=== PATIENT | female | born 1930 | race Caucasian/White ===

== ENCOUNTER 2018-10-21 10:50 | Inpatient (IN) | payer OTHER ==
[2018-10-21] VITALS (38 sets, daily range): BP systolic 91–145; BP diastolic 32–105
[~2018-10-21] VITALS: Ht 165.1 cm; Wt 53.6 kg
--- NOTE | ~2018-10-21 | HC ---
[facility] [place] [address] CONSULTATION Name: SHERMAN TREJO Room #: 216-P ADM IN M.R.#: [id number] Admission: 10/21/18 ������������������ Attend Phys: Lorraine Bolton MD Discharge: ������������������ Date of : 31 Report #: [id number] THIS REPORT FOR: //name// CC: Oscar Bolton REQUESTING PHYSICIAN: Jasson Mann MD CHIEF COMPLAINT: Pneumonia. HISTORY OF PRESENT ILLNESS: The patient is an 88-year-old female who presented to [facility] on 10/19/2018. She had been discovered to have pneumonia. She has a history of COPD, unfortunately also dementia, which has been increasing in severity over the last 2 years. The patient had a thoracentesis for pleural effusion and has had recurrent atrial fibrillation with rapid ventricular response, unfortunately has been refusing medications at times and there is concern that she may not accept Cardizem continuing on forward. The patient has had anorexia and decreased both p.o. fluid and food intake and this is overall concerning for her long-term protein calorie malnutrition. The patient is currently underweight and there is a concern that she may be able to maintain weight in the future. I did discuss this with the patient's niece who appears to be her primary caregiver or at least the primary contact for her family. Her niece, Brigitte, had stated she has had worsening overall ability to care for herself and then in July had a urinary tract infection followed by admission and then unfortunately had been moved to a memory care unit due to inability to self-care. There are other family members that have been intermittently involved. It appears that her son has intermittently been involved, but there is a state division investigation with regards to him possibly due to diversion of monetary funds. The patient at this current point in time appears to be comfortable. She denies any pain, denies any air hunger, denies nausea. She does admit to thirst and was able to drink some thickened fluids for me today. PAST MEDICAL HISTORY: Significant for COPD, chronic anemia, dementia, gastroesophageal reflux disease, hyperlipidemia. SOCIAL HISTORY: Again, she is living in a memory care unit at [facility]. Additionally, she has a niece who is making medical decisions at this time. She is not a current smoker. Does not have significant alcohol use. Again, son is involved, but he is under state investigation. She does not have a formal durable power of attorney at law, currently listed as full code. ALLERGIES: VALIUM AND AMIDE. MEDICATIONS: Currently, potassium chloride, MiraLax, torsemide 10 mg daily, Augmentin, lactulose, Colace, Cardizem, metoprolol, Protonix, DuoNeb, folic acid, Lipitor, aspirin. [address] [address] CONSULTATION Name: SHERMAN TREJO Room #: 216-P [facility] IN M.R.#: [id number] Admission: 10/21/18 ������������������ Attend Phys: Lorraine Bolton MD Discharge: ������������������ Date of : 31 Report #: [id number] FAMILY HISTORY: Noncontributory. PAST SURGICAL HISTORY: I am unable to obtain at this time. She has had a thoracentesis during this admission. REVIEW OF SYSTEMS: Again stated as per HPI. She is not responding significantly to my questions at this time, yes or no answers mostly, although again she denies pain, denies air hunger, denies significant nausea. Does report some thirst. Denies any other significant concerns. PHYSICAL EXAMINATION: VITAL SIGNS: Temperature 36.7, pulse 92, respirations 16, blood pressure is 112/45, 95% on room air. GENERAL: The patient is alert. She is actually oriented x 1 only. She is in no acute distress. HEENT: No scleral icterus, no conjunctival injection. Extraocular muscles appear to be intact. CARDIOVASCULAR: She has an irregularly irregular rate and rhythm; however, she is not tachycardic or bradycardic at this time. RESPIRATORY: She appears to have clear respiratory sounds in upper lungs bilaterally. ABDOMEN: Soft, although she would not allow me to palpate significantly and would not allow me to listen to her bowel sounds. LABORATORY DATA: These included white blood cells 23.6, hemoglobin 7.9. Potassium 3.4, creatinine 0.9. ASSESSMENT AND PLAN: 1. Pneumonia. Unfortunately, at this time, the patient has had continued overall significant pneumonia condition. She has had some stabilization in her condition, but her white blood cells have not returned to normal. Certainly, she is at risk for recurrent pneumonia, especially of aspiration type. Significant dysphagia known and significant dementia and we are concerned overall for her anorexia level. Did discuss this all with Brigitte today. She is understanding of this and is desiring to have hospice evaluate likely for transition to her previous residence and/or another facility long-term care in which she can have hospice in addition. I spent approximately 35 minutes in discussion of advanced directives with regards to this and advanced care planning. Again, Brigitte was amenable to this also, did a verbal authorization for changed to DNR status as well as outside the hospital DNR, which was confirmed with a porter sample case at this time. I did discuss this with porter sample case and primary team. 2. Dementia, appears to be severe. Again, the patient is likely to have recurrent pneumonia and/or aspiration in the future considering her dysphagia now. Their overall concern is her level of anorexia. Certainly, this would [facility] [address] [place] [address] CONSULTATION Name: SHERMAN TREJO Room #: 216-P ADM IN M.R.#: [id number] Admission: 10/21/18 ������������������ Attend Phys: Lorraine Bolton MD Discharge: ������������������ Date of : 31 Report #: [id number] contribute to a further decline and I believe she would likely qualify for hospice based on this criteria. 3. Dysphagia. Again, as previously stated, 4. Protein calorie malnutrition. Again, as previously stated, 5. Anemia. This could significantly contribute to her case in the future. 6. Fkuwv-fv-nmvkdmj combined respiratory failure. Again, this contributes as well. 7. Atrial fibrillation. I appreciate Cardiology's management. Again, this would be another concern with regards to her care whether or not she would continue Cardizem in the future. Again, this was all discussed with family today. Thank you very much for this consultation. Please contact me if you have any further questions with regards to the case, but I do feel like we can proceed forward with hospice in the future here. ��������������������������������������������� ���������������������������������������� By: ��������������������������������������������� 1925 1523 Matthew Angel DO /nt
--- NOTE | 2018-10-21 11:07 | EKG ---
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 : 1930 Requested By: Sania Boo Order Number: [id number] MD: Kameron Armendariz Measurements Intervals [place] Rate: 159 P: KS: QRS: 90 QRSD: 84 T: -87 QT: 303 QTc: 493 Interpretive Statements Atrial fibrillation with rapid V-rate Nonspecific ST and T wave abnormality No previous ECG available for comparison Electronically Signed On 10-21-2018 11:06:55 COMPATIBILITY TEST ENGINEER by Kameron Armendariz [email or web address] ��������������������������������������������� <ELECTRONICALLY SIGNED> ���������������������������������������� By: Kameron Armendariz MD, [facility] ��������������������������������������������� 10/21/18 1106 1053 1053 Kameron Armendariz MD, FACC /EPI
[2018-10-21] MEDS ORDERED: IRON325 PO (11:08)
[2018-10-21] MEDS ORDERED: ADVAIR 250-501 EACH INH (11:08)
[2018-10-21] MEDS ORDERED: PRAVACHOL20 MG PO (11:09)
[2018-10-21] MEDS ORDERED: ROBITUSSIN100 MG/53 PO (11:09)
[2018-10-21] MEDS ORDERED: PRILOSEC 20 MG20 MG PO (11:09)
[2018-10-21 11:43] LABS: ABSOLUTE NEUTROPHILS 16.9 thou/uL (1.4-8.2); BASOPHILS 0.1 % (0.0-2.0); HEMATOCRIT 29.6 % (37.0-47.0); HEMOGLOBIN 9.4 gm/dL (12.0-15.0); LYMPHOCYTES 4.6 % (24.0-44.0); MCH 24.9 pg (26.0-34.0); MCHC 31.7 g/dL (28.0-37.0); MCV 78.4 fL (80.0-100.0); MONOCYTES 5.7 % (1.0-8.0); PLATELET COUNT 504 thou/uL (150-400); POLYS 89.6 % (36.0-66.0); RBC 3.78 mil/uL (4.20-5.00); RDW 24.6 % (10.5-14.5); WBC 18.9 thou/uL (4.0-11.0)
[2018-10-21 12:12] LABS: CALCIUM 9.3 mg/dL (8.5-10.1); CREATININE 1.4 mg/dL (0.6-1.0); POTASSIUM 4.2 mmol/L (3.5-5.1)
[2018-10-21 12:16] LABS: ALBUMIN 2.4 g/dL (3.4-5.0); TOTAL BILIRUBIN 0.3 mg/dL (<0.1-1.0); TOTAL PROTEIN 6.7 g/dL (6.4-8.2)
[2018-10-21 12:18] LABS: TROPONIN-I 2.49 ng/mL (<0.06)
[2018-10-21 12:39] LABS: ANISOCYTOSIS 3+; MACROCYTES 2+; POLYCHROMASIA 1+; TARGET CELLS FEW
--- NOTE | 2018-10-21 14:44 | NUR ---
VASCULAR ACCESS CONSULTED FOR PICC LINE, PT'S LABS,MEDS,HISTORY, ORDER AND CONSENT VERIFIED. PT WAS PREPPED AND DRAPED FOR MAX BARRIER PRECAUTIONS. L[place]ON BASILIC WAS WIDELY PATENT WITH USG, 1% LIDOCAINE GIVEN SQ. 5FR TL POWER PICC TRIMMED TO 38CM INSERTED TO 1CM EXTERNAL. PICC SECUREED STAT CXR OBTAINED.
--- NOTE | 2018-10-21 15:00 | NUR ---
CXR confirmed placement, released for immediate use per protocol to Cynthia FELTON
--- NOTE | 2018-10-21 19:20 | NUR ---
SHIFT SUMMARY: REPORT RECEIVED FROM ROBERT RODRIGUEZ RN IN ER. PT RECEIVED PER CART TO ICU #242 WITH DIAGNOSIS: RIGHT LOWER LOBE PNEUMONIA, ELEVATED TROPONIN. PT ALSO HAS NEW ONSET AFIB WITH RVR, CURRENTLY CARDIZEM GTT INFUSING AT 10MG/HR WITH HR 120-130'S. ALERT TO PERSON AND THAT SHE IS IN [place]. CALM, THEN WHEN PROVIDING ANY CARE PT BECOMES IRRITABLE, CUSSING AT NURSES AND TRYING TO HINDER NECESSARY CARE. DIGOXIN ADMINISTERED FOR AFIB WITH RVR, THEN HR DOWN TO 80-100. ANTIBIOTICS INFUSING, 5L/NC, NONPRODUCTIVE DRY MODERATE COUGH, RESP RATE INTERMITTENTLY IN UPPER 20'S & RARELY TO VERY LOW 30'S. PT WOULD BE TOO SHORT OF AIR TO USE THE BEDPAN, SO PEREZ 16FR PLACED WITH STERILE TECHNIQUE, 10CC STERILE WATER PLACED IN BALLOON. EMERGENCY CONTACT #1, ESTRELLA BALDWIN STATED SHE RECEIVED CALL FROM CUSTODIAL AND WAS GIVEN THE HOSPITAL NUMBER. ESTRELLA STATED THAT THE PT HAS A BROTHER (OR SON) BUT HE IS NOT INVOLVED IN HER CARE AND HE DOESN'T HAVE A TELEPHONE. SHE RESIDES IN [place] AND IS UNABLE TO CONTACT HIM. REPORT TO MONALISA CURTIS RN.
[2018-10-21 21:40] LABS: URINE BILIRUBIN NEGATIVE (Negative); URINE BLOOD NEGATIVE (Negative); URINE CLARITY CLOUDY; URINE COLOR YELLOW; URINE GLUCOSE-RANDOM* NEGATIVE (Negative); URINE KETONES NEGATIVE (Negative); URINE LEUKOCYTES-REFLEX NEGATIVE (Negative); URINE NITRITE-REFLEX NEGATIVE (Negative); URINE PROTEIN (DIPSTICK) NEGATIVE (Negative); URINE SPECIFIC GRAVITY 1.025 (1.005-1.035); URINE UROBILINOGEN 0.2 E.U./dl (0.2-1.0)
[2018-10-22] VITALS (30 sets, daily range): BP systolic 90–140; BP diastolic 38–76
[2018-10-22 00:47] LABS: CHOLESTEROL 138 mg/dL (<200); HDL CHOLESTEROL 42 mg/dL (>40); LDL CHOLESTEROL 69 mg/dL (<100); SERUM ASSESSMENT Clear; TC:HDL 3.3 Ratio (Not establshd); TRIGLYCERIDE 135 mg/dL (<150); VLDL 27 mg/dL (<40)
[2018-10-22 05:23] LABS: HEMATOCRIT 27.6 % (37.0-47.0); HEMOGLOBIN 8.4 gm/dL (12.0-15.0); MCHC 30.4 g/dL (28.0-37.0); MCV 79.1 fL (80.0-100.0); RBC 3.49 mil/uL (4.20-5.00); RDW 24.2 % (10.5-14.5); WBC 18.2 thou/uL (4.0-11.0)
[2018-10-22 05:37] LABS: CALCIUM 8.1 mg/dL (8.5-10.1); CREATININE 1.2 mg/dL (0.6-1.0); POTASSIUM 4.2 mmol/L (3.5-5.1)
--- NOTE | 2018-10-22 06:00 | NUR ---
PT RESTING QUIETLY AT PRESENT. HAS HAD PERIODS OF RESTLESSNESS. PT STATES SHE SMOKES 6 CIG/DAY GIVEN A NICOTINE PATCH. O2 SAT 95 % ON 5 L NC NON PRODUCTIVE DRY COUGH. REMAINS IN A FIB RATE 75 BATHED. WILL CONT TO MONITOR.
--- NOTE | 2018-10-22 07:52 | HC ---
[facility] [place] [address] CONSULTATION Name: SHERMAN TREJO Room #: 242- ADM IN M.R.#: [id number] Admission: 10/21/18 ������������������ Attend Phys: Lorraine Bolton MD Discharge: ������������������ Date of : 31 Report #: [id number] THIS REPORT FOR: //name// CC: Oscar Bolton DATE OF SERVICE: 10/21/2018 INFECTIOUS DISEASE CONSULTATION ATTENDING PHYSICIAN: Dr. Bolton. REASON FOR EVALUATION: Sepsis, right-sided pneumonitis. HISTORY OF PRESENT ILLNESS: Chart reviewed, the patient examined. This is an 87-year-old woman with a known history of COPD, who is a resident of a facility. Staff apparently observed what appeared to be progressive dyspnea, productive cough of brownish sputum. The chest x-ray raised question of a pneumonitis. Due to feeling that she was hypoxemic, she was transferred to the Emergency Room, where she was found to be in uncontrolled atrial fibrillation. She was also hypotensive with systolic blood pressures in the 90s. As a result, she was transferred to Intensive Care Unit. It is difficult to ascertain her degree of understanding and I suspect may have a degree of dementia, perhaps with some fairly marked encephalopathy. She does respond to questions, although it is not clear that they reflect situation. Any question that raises a question of some complaints, she says no. She states she is eating well. Her weight is stable. She was found to have lactic acid elevated at 2.9 initially and troponin elevated at 2.29. White count elevated at 18.9. Chest x-ray did confirm right lower lobe opacities. She was started empirically on combination therapy with vancomycin, piperacillin, tazobactam and azithromycin. ALLERGIES: DIAZEPAM. CURRENT MEDICATIONS: Include p.r.n. analgesics, antiemetics, zolpidem, guaifenesin, Zosyn, vancomycin, diltiazem CD, aspirin and atorvastatin. PAST MEDICAL HISTORY: Includes likely COPD, anemia, reflux and hyperlipidemia. SOCIAL HISTORY: Reportedly, no smoker. No ethanol. FAMILY HISTORY: Noncontributory. REVIEW OF SYSTEMS: Not reliably obtained. PHYSICAL EXAMINATION: GENERAL: She appears chronically ill, undernourished, in [id number]-giohwyub [facility] [address] [place] [address] CONSULTATION Name: SHERMAN TREJO Room #: 242-P [facility] IN [facility]#: [id number] Admission: 10/21/18 ������������������ Attend Phys: Lorraine Bolton MD Discharge: ������������������ Date of : 31 Report #: [id number] distress. VITAL SIGNS: Temperature 97.1. Pulse had been in the 170s; now more recently, in the 104s. Respirations 24; that is down from 35. Blood pressure is 105/56. Saturation is 94% and she is on 5 liters nasal cannula oxygen supplementation. HEENT: Extraocular muscles intact. She is normocephalic. NECK: Supple. LUNGS: Scattered coarse breath sounds. HEART: Tachycardic, irregular. I do not appreciate a murmur. ABDOMEN: Soft. There is no apparent tenderness. GENITOURINARY: Deferred. RECTAL: Deferred. LABORATORY DATA: Chest x-ray as described above. Electrolytes: Sodium 138, potassium 4.2, chloride 103, bicarbonate is 23, anion gap of 12, BUN and creatinine 54 and 1.4 and glucose of 157. Albumin of 2.4. Total protein of 6.7. Estimated GFR of 36. Lactic acid serially were 2.9 and 1.3. Troponin elevated at 2.29. CBC: White count of 18.9, H and H 9.4 and 29.6 and platelets of 504,000. ASSESSMENT AND PLAN: Pneumonitis with early sepsis. We will continue empiric antimicrobial therapy. I am not hopeful to obtain any sputum at this point. There are blood cultures in progress. We will obtain a urinalysis as well and send off Pneumococcal and Legionella antigen and MRSA PCR. She appears quite tenuous at this point. ��������������������������������������������� <ELECTRONICALLY SIGNED> ���������������������������������������� By: Ras Lerner MD ��������������������������������������������� 10/22/18 0752 1742 0012 Ras Lerner MD /nt
--- NOTE | 2018-10-22 09:26 | EKG ---
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 : 1930 Requested By: Kameron Armendariz Order Number: [id number] MD: Kameron Armendariz Measurements Intervals [place] Rate: 101 P: DC: QRS: 89 QRSD: 83 T: 256 QT: 380 QTc: 493 Interpretive Statements Atrial fibrillation Borderline right axis deviation Nonspecific ST and T wave abnormality Compared to ECG 10/21/2018 10:53:17 Heart rate has slowed Electronically Signed On 10-22-2018 9:25:43 COLOR MAKER DYER by Kameron Armendariz [email or web address] ��������������������������������������������� <ELECTRONICALLY SIGNED> ���������������������������������������� By: Kameron Armendariz MD, [facility] ��������������������������������������������� 10/22/1825 D: [id number] 9 Kameron Armendariz MD, FACC /EPI
--- NOTE | 2018-10-22 10:35 | 2DMMODE ---
[facility] [address] [place] [address] 2 D/M-MODE ECHOCARDIOGRAM Name: SHERMAN TREJO Room #: 242-P ADM IN M.R.#: [id number] ������������� Admission: 10/21/18 ������������� Attend Phys: Lorraine Bolton MD Discharge: ��� ������������� ��� Date of : 32 Date of Service: 10/22/18 1035 �� Report #: [id number] �������� ��������������������������������������������[id number] THIS REPORT FOR: //name// APPROVED REPORT Study performed: 10/22/2018 09:14:57 EXAM: Comprehensive 2D, Doppler, and color-flow Echocardiogram Patient Location: ICU Room #: 242 Status: routine BSA: 1.59 HR: 85 bpm BP: 140/69 mmHg Rhythm: Atrial Fibrillation Other Information Study Quality: Good Indications Atrial Fibrillation Elevated Troponin 2D Dimensions RVDd: 28.69 mm IVSd: 9.08 (7-11mm) LVOT Diam: 17.92 (18-24mm) LVDd: 48.30 mm PWd: 9.92 (7-11mm) Ascending Ao: 24.54 (22-36mm) LVDs: 34.86 (25-40mm) Aortic Root: 28.43 mm IVC: 24.00 mm Volumes Left Atrial Volume (Systole) Single Plane 4CH: 51.37 mL Single Plane 2CH: 64.42 mL LA ESV Index: 42.00 mL/m2 Aortic Valve AoV Peak Colin.: 1.39 m/s AO Peak Gr.: 7.80 mmHg LVOT Max P.77 mmHg LVOT Max V: 1.09 m/s JYOTSNA Vmax: 1.98 cm2 Pulmonary Valve PV Peak Colin.: 0.88 m/s PV Peak Gr.: 3.09 mmHg [facility] [address] [place] [address] 2 D/M-MODE ECHOCARDIOGRAM Name: SHERMAN TREJO Room #: 242-[facility] IN [facility].#: [id number] ������������� Admission: 10/21/18 ������������� Attend Phys: Lorraine Bolton MD Discharge: ��� ������������� ��� Date of : 32 Date of Service: 10/22/18 1035 �� Report #: [id number] �������� ��������������������������������������������[id number] Tricuspid Valve TR Peak Colin.: 2.79 m/s TR Peak Gr.: 31.26 mmHg PA Pressure: 41.00 mmHg Left Ventricle The left ventricle is normal size. There is normal left ventricular wall thickness. Left ventricular systolic function is moderately decreased. LVEF is 40%. Hypokinesis of mid to distal septum and anterior fuentes This study is not technically sufficient to allow evaluation of the LV diastolic function due to atrial fibrillation. Right Ventricle The right ventricle is normal size. The right ventricular systolic function is normal. Atria Left atrium is dilated. The right atrium size is normal. Aortic Valve Aortic valve is mildly calcified. No aortic regurgitation. There is no aortic valvular stenosis. Mitral Valve The mitral valve is normal in structure. Mild mitral regurgitation. No evidence of mitral valve stenosis. Tricuspid Valve The tricuspid valve is normal in structure. There is mild tricuspid regurgitation. Estimated PAP 40 mmHg. There is moderate pulmonary hypertension. Pulmonic Valve The pulmonary valve is normal in structure. Trace pulmonic regurgitation. Great Vessels The aortic root is normal in size. IVC is dilated and collapses <50% with inspiration. Pericardium Small pericardial effusion. <Conclusion> Left ventricular systolic function is moderately decreased. [facility] [place] [address] [place] [address] 2 D/M-MODE ECHOCARDIOGRAM Name: SHERMAN TREJO Room #: 242-[facility] IN M.R.#: [id number] ������������� Admission: 10/21/18 ������������� Attend Phys: Lorraine Bolton MD Discharge: ��� ������������� ��� Date of : 32 Date of Service: 10/22/18 1035 �� Report #: [id number] �������� ��������������������������������������������[id number] LVEF is 40%. Hypokinesis of mid to distal septum and anterior fuentes Aortic valve is mildly calcified. No regurgitation or stenosis. The mitral valve is normal in structure. Mild mitral regurgitation. There is mild tricuspid regurgitation. Estimated pulmonary artery pressure of 40 mmHg. Small pericardial effusion. ��������������������������������������������� <ELECTRONICALLY SIGNED> ���������������������������������������� By: Kameron Armendariz MD, [facility] ��������������������������������������������� 10/22/18 1035 103 1035 Kameron Armendariz MD, FACC /INF
--- NOTE | 2018-10-22 13:45 | NUR ---
CM ASSESSMENT: CASE OPENED FOR DC PLANNING. CLINICAL INFO REVIEWED. PT ADMITTED FROM [facility] R/T SOA. TROPONIN ELEVATED AND IN RAPID AFIB. PT WITH HX DEMENTIA AND POOR HISTORIAN. SPOKE GABRIEL WEEMS AT [facility], TREVER WHO CONFIRMS PT IS LTC ON LOCKED MEMORY CARE UNIT. PREVIOUSLY LIVED IN [facility], THEN HOSPITALIZED AT [facility] AND PLACED AT [facility] 08/20/18. PT USES WALKER AND W/C AND NEEDS ASSIST WITH ADLS. CALLED LISTED CONTACT ESTRELLA BALDWIN [phone]. ESTRELLA IS PT'S NIECE AND LIVES IN [place]. ESTRELLA CONFIRMS PLAN TO RETURN TO [facility] WHEN MEDICALLY STABLE. ASKED DC TITLE 1 TUTOR TO FAX CLINICAL TO MARLENA AT [facility] ADMISSIONS. THERAPY EVALS ORDERED.
--- NOTE | 2018-10-22 13:49 | NUR ---
FAXED CLINICAL UPDATE TO [facility] LEFT MSG WITH [facility] IN ADM. THAT UPDATE FAXED. DCP TO FOLLOW.
--- NOTE | 2018-10-22 14:18 | NUR ---
ALERT TO PERSON, THIS AFTERNOON PT IS ALERT TO PERSON, PLACE- [facility], DENIES PAIN, AFIB-70'S, 02 4L/NC, ENCOURAGED TO TAKE DEEP BREATHS THEN COUGH. PASSED SWALLOW EVAL WITH LIMITATIONS. PT TOLERATED MEAL WHEN SITTING UPRIGHT. LATER PT HAS A MOIST NONPRODUCTIVE COUGH. PEREZ WITH ADEQUATE URINE OUTPUT. SLOWLY PROGRESSING.
[2018-10-23] VITALS (16 sets, daily range): BP systolic 101–139; BP diastolic 36–87
[2018-10-23 05:54] LABS: HEMATOCRIT 26.2 % (37.0-47.0); HEMOGLOBIN 8.3 gm/dL (12.0-15.0); MCH 25.1 pg (26.0-34.0); MCHC 31.6 g/dL (28.0-37.0); MCV 79.4 fL (80.0-100.0); RBC 3.3 mil/uL (4.20-5.00); WBC 10.6 thou/uL (4.0-11.0)
[2018-10-23 06:00] LABS: CALCIUM 8.1 mg/dL (8.5-10.1); CREATININE 1.3 mg/dL (0.6-1.0); POTASSIUM 4.6 mmol/L (3.5-5.1)
--- NOTE | 2018-10-23 06:00 | NUR ---
PT HAS SLEPT MOST OF NOCT. COUGHING SPELLS AT TIMES. MEDS GIVEN. LUNGS few scatterdd wheezes. 250 cc uo this shift. remains in afib rate 85 o2 sat 95 % on 5 l nc. bathed. remains a ccu tele overflow. awaiting a bed. will cont to monitor closely.
--- NOTE | 2018-10-23 08:41 | HC ---
[facility] [place] [address] CONSULTATION Name: SHERMAN TREJO Room #: [facility] IN M.R.#: [id number] Admission: 10/21/18 ������������������ Attend Phys: Lorraine Bolton MD Discharge: ������������������ Date of : 32 Report #: [id number] THIS REPORT FOR: //name// CC: Oscar Bolton REASON FOR CONSULTATION: Atrial fibrillation. HISTORY OF PRESENT ILLNESS: The patient is an 87-year-old institutionalized woman with severe dementia and now with atrial fibrillation with a rapid ventricular response. She was sent from her correction facility with hypoxemia and audible wheezing. An x-ray done at the facility showed pneumonia. She was transferred to the Emergency Department. Upon arrival, she was found to be in atrial fibrillation with a rapid ventricular response. Her lactate was high as was her troponin at 2.4. I was asked to see her with regards to her atrial fibrillation and troponin elevation. She is alert and arousable, although has no idea who she is or where she is. She currently denies chest heaviness or pressure. She has no prior known heart history. She does know that she has a son who lives in town and he has been contacted of her arrival to the Emergency Department. ALLERGIES: She is allergic to Valium. PAST MEDICAL HISTORY: Unobtainable. SOCIAL HISTORY: Unobtainable. FAMILY HISTORY: Unobtainable. REVIEW OF SYSTEMS: Not thought to be reliable. PHYSICAL EXAMINATION: GENERAL: Reveals a frail elderly woman who has audible wheezing and is dyspneic. VITAL SIGNS: Blood pressure is 103/53, heart rate of 110 and irregular. She is afebrile. 5 feet 2 inches tall, 127 pounds. HEENT: There are neither xanthelasma, subcutaneous xanthomata, oral mucosal or digital cyanosis or kyphoscoliosis present. CHEST: Reveals diminished breath sounds at the right base. There at mid end expiratory wheezes, scattered rhonchi. CARDIAC: Reveals an irregularly irregular rhythm with normal S1, S2. ABDOMEN: Soft and nontender. EXTREMITIES: Without cyanosis, clubbing or edema. Radial pulses are 2+. NEUROLOGIC: She is alert with a nonfocal exam. LABORATORY DATA: Sodium 138, potassium 4.2, creatinine 1.4, troponin 2.29. White blood cell count 18.9, hemoglobin 9.4, platelet count 504, 89% polys. [address] [address] CONSULTATION Name: SHERMAN TREJO Room #: 242-P ADM IN M.R.#: [id number] Admission: 10/21/18 ������������������ Attend Phys: Lorraine Bolton MD Discharge: ������������������ Date of : 31 Report #: [id number] Thyroid function studies are normal. RADIOLOGICAL DATA: Chest x-ray demonstrates multifocal pulmonary infiltrates, primarily the right lower lobe. EKG, atrial fibrillation with nonspecific ST and T-wave abnormality. IMPRESSION: 1. Atrial fibrillation with a rapid ventricular response. 2. Pneumonia. 3. Non-Q-wave myocardial infarction, probably type 2 myocardial infarction in the setting of pneumonia, hypoxemia, bronchospasm and atrial fibrillation. 4. Severe dementia. 5. Dyslipidemia. RECOMMENDATIONS: 1. Intravenous with migration to oral Cardizem. Atrial fibrillations may be very hard to control in the setting of pneumonia, sepsis and bronchospasm. 2. Conservative measures in this institutionalized elderly woman with severe dementia. 3. Infectious Disease and Speech Therapy evaluation. Thank you for asking me to participate in her care. ��������������������������������������������� <ELECTRONICALLY SIGNED> ���������������������������������������� By: Kameron Armendariz MD, [facility] ��������������������������������������������� 10/23/18 [id number] Kameron Armendariz MD, FAC /nt
--- NOTE | 2018-10-23 09:43 | NUR ---
ORDERS RECEIVED BY MD FOR SPEAKING VALVE DEEMED ORDERED IN ERROR PATIENT DOES NOT HAVE A TRACHEOTOMY. ALL OTHER ORDERS PLACED BY MD ARE BEING ADDRESSED - DYSPHAGIA AND COGNITIVE/COMMUNICATION.
--- NOTE | 2018-10-23 18:16 | NUR ---
SHIFT SUMMARY: ALERT, ORIENTED TO PERSON, COOPERATIVE. PT FED HERSELF TODAY WHICH EXHAUSTED HER. STATING SHE IS TIRED, THEN SLEEPING AFTER MEALS. AFIB, DENIES CHEST DISCOMFORT. AFTER NONPRODUCTIVE MOIST COUGH SHE BECOMES SOA WHICH TAKES A WHILE TO RESOLVE. TOLERATING DIET, ADEQUATE URINE OUTPUT PER PEREZ. PT VERY SLOWLY PROGRESSING DUE TO WEAKNESS, THEN LETHARGY AFTER ANY EXCERTION IE COUGHING OR FEEDING SELF.
--- NOTE | 2018-10-23 22:36 | NUR ---
Pt resting comfortably in bed with stable VS and adequate SpO2. Report called to next RN and pt awaiting transfer to CCU.
[2018-10-24 04:55] VITALS: BP 132/49
[2018-10-24 05:37] LABS: FOLIC ACID 6.1 ng/mL (8.6-58.9)
[2018-10-24 07:42] VITALS: BP 116/43
--- NOTE | 2018-10-24 08:12 | NUR ---
PT. TRANSFER FROM ICU AROUND 2214; ALERT TO PERSON; NO C/O PAIN; ABLE TO REST MOST OF THE NIGHT; DRESSING PULLED OFF EARLY ON THE MORNING BY PT.; DRESSING CHANGED; PICC COX FOUND ON CCU OR ICU; PASSED ON REPORT; ASSESSMENT CHARGED; FOLLOWING POC; PASSED ON REPORT.
[2018-10-24 10:09] LABS: ABSOLUTE NEUTROPHILS 13.7 thou/uL (1.4-8.2); BASOPHILS 0.4 % (0.0-2.0); HEMATOCRIT 25.8 % (37.0-47.0); LYMPHOCYTES 2.4 % (24.0-44.0); MCH 24.5 pg (26.0-34.0); MONOCYTES 4.4 % (1.0-8.0); PLATELET COUNT 409 thou/uL (150-400); POLYS 92.8 % (36.0-66.0); RBC 3.27 mil/uL (4.20-5.00); RDW 23.7 % (10.5-14.5); WBC 14.7 thou/uL (4.0-11.0)
[2018-10-24 10:17] LABS: CALCIUM 8.4 mg/dL (8.5-10.1); CREATININE 1.3 mg/dL (0.6-1.0); POTASSIUM 4.2 mmol/L (3.5-5.1)
[2018-10-24 10:49] LABS: ANISOCYTOSIS 3+; HYPOCHROMASIA 2+; MICROCYTES 1+; OVALOCYTES FEW
[2018-10-24 11:16] VITALS: BP 123/49
[2018-10-24 15:41] VITALS: BP 127/58
--- NOTE | 2018-10-24 18:30 | NUR ---
RECIEVED PATIENT AROUND 0700 ASSUMED CARE. SLEEPING AWAKES TO VOICE, ORIENTED TO SELF. REORIENTD TO PLACE AND TIME. NO COMPLAINTS OF PAIN OR NAUSEA. HIGH FALL RISK, ST/OT/PT TO SEE. 3L 02 PER NC. EXPIRATORY WHEEZES NOTED. NECTAR THICK LIQUIDS AND MEDS CRUSHED IN PUDDING. LONDON TLC DRESSISNG CHANGED. SITE WITHOUT REDNESS OR SWELLING. ALL PORTS WITH BLOOD RETURN AND FLUSHES WELL. BLOOD CULTURES DRAWN TODAY. INCREASED PBNP, FLUIDS STOPPED AND LASIX GIVEN. PT ASSISSTED PATIENT TO CHAIR AND REMAINED FOR 5 HOURS. SOFT FORMED BM AT END OF SHIFT.
[2018-10-24 19:39] VITALS: BP 106/62
[2018-10-25 04:21] VITALS: BP 114/40
--- NOTE | 2018-10-25 04:25 | NUR ---
ASSESSMENT DOCUMENTED.PT RESTING IN NAD.ALERT TO SELF.FOLLOWS SIMPLE COMMANDS.PT BEEN AWAKE MOST OF THE NIGHT DESPITE BEING GIVEN SLEEPING PILL.PT TRYING TO PULL OUT PICC LINE.PULLS OUT TELE LEADS MUTIPLE TIMES.VSS.ON ABT PER ORDERS,TOLERATING.ON MONITOR AFIB.REMAINS ON O2 AT 3LITERS THAT SHE KEEPS PULLING OUT,SATS ADEQUATE.INCONTINENT OF X2 SOFT BMS.PT DENIES PAIN OR ANY OTHER DISTRESS.WILL CONT TO MONITOR PER POC.
[2018-10-25 04:29] LABS: HEMATOCRIT 24.3 % (37.0-47.0); HEMOGLOBIN 7.6 gm/dL (12.0-15.0); MCH 24.8 pg (26.0-34.0); MCHC 31.5 g/dL (28.0-37.0); MCV 78.7 fL (80.0-100.0); RBC 3.08 mil/uL (4.20-5.00); RDW 23.4 % (10.5-14.5); WBC 16.5 thou/uL (4.0-11.0)
[2018-10-25 04:43] LABS: CALCIUM 8.3 mg/dL (8.5-10.1); CREATININE 1.3 mg/dL (0.6-1.0); POTASSIUM 4.6 mmol/L (3.5-5.1)
[2018-10-25 08:00] VITALS: BP 128/51
[2018-10-25 11:16] LABS: % SATURATION 3 % (20-39); IRON 10 ug/dL (50-170); TIBC 335 ug/dL (250-450)
[2018-10-25 11:38] VITALS: BP 132/85
[2018-10-25 11:49] LABS: ABSOLUTE RETIC COUNT 0.067 10^6/uL; OBSERVED RETIC COUNT 2.18 % (0.6-2.6)
--- NOTE | 2018-10-25 12:26 | NUR ---
DCP FAXED CLINICAL UPDATE TO [facility] SPOKE WITH MARLENA SHE RECEIVED UPDATE AND FAXED MOST RECENT PT/OT NOTES. DCP TO FOLLOW.
--- NOTE | 2018-10-25 13:05 | NUR ---
[facility] updated. Pt improving and switching to po atb today. O2 needs decreasing. BMP elevated. Possible dc back to the SNF in 1-2 days pending her progress. [employer] refusing to auth snf stay. Plan return to [facility].
--- NOTE | 2018-10-25 14:22 | NUR ---
RECIEVED PATIENT AT 0700 AND ASSUMED CARE. AWAKES TO VOICE. ORIENTED TO SELF AND PLACE. REORIENTED TO TIME. NO C/O PAIN, N/V. WEAK BUT CAN GET UP TO CHAIR WITH ONE ASSIST. O2 PER NASAL CANNULA AT 2L. DIMINISHED AND EXP WHEEZES. PEREZ PATENT AND SECURE WITH YELLOW URINE WITH SEDIMENT. [place]URESIS [place]IN[place] [address]. SPEECH OBSERVED PATIENT EATING LUNCH AND ALTHOUGH SHE IS MUCH IMPROVED, SHE WILL NOT CHANGE ANY RESTRICTIONS AT THIS TIME. POSSIBLE VIDEO SWALLOW ON 10/26.
--- NOTE | 2018-10-25 14:47 | NUR ---
ASSUMED CARE AT 0700. SLEEPING BUT AWAKES TO VOICE. ORIENTED TO SELF AND PLACE, REORIENTED TO TIME. NO C/O PAIN, N/V. MODERATE ASSIST WITH GAIT BELT AND WALKER WITH ONE PERSON TO GET OOB TO CHAIR. 02 PER NC AT 2L. LUNGS DIMINISHED WITH WHEEZES. PEREZ INTACT AND DRAINING YELLOW URINE WITH SEDIMENT. DIURESIS CONTINUES[place] [address]. SPEECH OBSERVED PT EATING LUNCH AND WILL POSSIBLE DO A VIDEO SWALLOW ON 10/26. NO CHANGES TO DIET AT THIS TIME. BOTH APPETITE AND MENTATION HAVE IMPROVED.
[2018-10-25 16:00] VITALS: BP 117/62
[2018-10-25 20:27] VITALS: BP 118/52
--- NOTE | 2018-10-26 03:23 | NUR ---
ASSESSMENT DOCUMENTED.PT RESTING IN NAD.A/OX 1,FOLLOWS COMMANDS APPROPRIATELY.VSS.AFIB ON MONITOR.UP WITH ASSIST TO BCS.REMAINS ON OXYGEN AT 2LITERS PNC,SATS ADEQUATE.DENIES PAIN.POC IS TO DISCHARGE TO SNF WHEN STABLE.
[2018-10-26 05:58] LABS: HEMATOCRIT 25.1 % (37.0-47.0); HEMOGLOBIN 7.7 gm/dL (12.0-15.0); MCH 24.3 pg (26.0-34.0); MCHC 30.8 g/dL (28.0-37.0); MCV 78.8 fL (80.0-100.0); RBC 3.19 mil/uL (4.20-5.00); RDW 23.4 % (10.5-14.5)
[2018-10-26 06:12] LABS: CALCIUM 8.4 mg/dL (8.5-10.1); CREATININE 1.1 mg/dL (0.6-1.0); MAGNESIUM 1.9 mg/dL (1.8-2.4); POTASSIUM 4.6 mmol/L (3.5-5.1)
[2018-10-26 06:40] VITALS: BP 121/44
[2018-10-26 07:35] VITALS: BP 134/44
[2018-10-26 11:38] VITALS: BP 132/52
--- NOTE | 2018-10-26 12:50 | NUR ---
FOLLOWING FOR DC PLANNING. CLINICAL INFO REVIEWED. PER HOSPITALIST TODAY, POSSIBLE W/E DC BACK TO [facility]. INFORMED ELAINE AND MARLENA IN ADMISSION AT FACILITY. REQUESTED CHART COPY. FACILITY HAS SUBMITTED FOR SKILLED AUTH WITH [employer] BUT WILL DC WHEN MEDICALLY READY BACK TO LTC AT CENTER.
[2018-10-26 16:40] VITALS: BP 137/42
--- NOTE | 2018-10-26 18:25 | NUR ---
ASSUMED CARE AT SHIFT CHANGE. PT ORIENTED TO SELF, DENIES ANY PAIN THIS AM. DID C/O PAIN IN VAGINA AROUND 1630. TYLENOL GIVEN WITH RELIEF. PT INCONTINENT OF B/B WITH BM X 2 TODAY. IV ATB D/C'D PER DR LIGHT. MEDS GIVEN WITH PUDDING/ICE CREAM. PT TOLERATED WELL. UP WITH PHYSICAL THERAPY TO CHAIR THIS MORNING WITH MODERATE ENDURANCE. INTERMITTENT COUGHING WITH SOB. NAD NOTED. ASSESSMENTS PER CHART. WILL CONT TO MONITOR AND FOLLOW POC.
[2018-10-26 20:23] VITALS: BP 143/46
[2018-10-27 03:24] VITALS: BP 140/49
--- NOTE | 2018-10-27 03:29 | NUR ---
ASSESSMENT DOCUMENTED.PT RESTING AT THIS TIME.VSS.AFIB ON MONITOR.PT HAS BEEN HAVING SOFT STOOLS THIS NOC.SUPERVISOR BURLING AND JOINING NOTIFIED,R/O C-DIFF ORDERED,STOOL SENT TO LAB.PT PLACED ON SPECIAL ISOLATION PRECAUTIONS WE WAIT FOR THE CDIFF STOOL RESULTS.ON O2 AT 2LITERS PNC,SATS ADEQUATE.PERIAREA SORE AND RED FROM FREQUENT BOWELS,FREQUATE PERICARE.REMAINS FEBRILE.PT DENIES PAIN.INCONTINENT OF B&B.POC IS TO CONT W/CARE.POSSIBLE DISCHARGE TO [facility] WHEN STABLE.
[2018-10-27 10:25] LABS: HEMATOCRIT 27.3 % (37.0-47.0); HEMOGLOBIN 8.8 gm/dL (12.0-15.0); MCH 24.9 pg (26.0-34.0); MCHC 32.3 g/dL (28.0-37.0); MCV 77.2 fL (80.0-100.0); PLATELET COUNT 446 thou/uL (150-400); RBC 3.54 mil/uL (4.20-5.00); RDW 22.8 % (10.5-14.5); WBC 18.7 thou/uL (4.0-11.0)
[2018-10-27 10:32] LABS: CALCIUM 8.6 mg/dL (8.5-10.1); POTASSIUM 4.6 mmol/L (3.5-5.1)
[2018-10-27 11:15] LABS: ABSOLUTE NEUTROPHILS 17.6 thou/uL (1.4-8.2); ANISOCYTOSIS 2+; HYPOCHROMASIA 1+
[2018-10-27 11:16] LABS: MICROCYTES 1+; POLYCHROMASIA OCCASIONAL
[2018-10-27 11:24] VITALS: BP 145/58
--- NOTE | 2018-10-27 17:04 | NUR ---
VSS-AFEBRILE. ALERT AND ORIENTED X 1-2. COMPLIANT AND PLEASANT THIS SHIFT. OOB WITH PHYSICIAL THERAPY AND WALKER FOR AMBULATION. SAT IN CHAIR FOR ALL MEALS, NEEDED SET UP ONLY WITH TRAY. NO STOOLS THIS SHIFT. NO REPORTED N/V. FAIR APPETITE, ATE ABOUT 25-50% OF MEALS. REMAINS INCONTINEMT OF URINE, PARTIAL BED BATH AND LINEN CHANGE. CREAM APPLIED TO LENORE LENORE AREA, TENDER DUE TO FREQUENT DIARRHEA THE LAST COUPLE OF DAYS. MUCH LESS PINK AND TENDER AT THE END OF SHIFT. REMAINS ON 2LNC WITH A CONGESTED COUGH, NO SPUTUM OBSERVED.
[2018-10-27 17:53] VITALS: BP 138/48
[2018-10-27 20:16] VITALS: BP 141/51
--- NOTE | 2018-10-28 03:16 | NUR ---
ASSESSMENT: PT REMAIMN ALERT AND ORIENT TIMES THREE AT THE BEGINNING OF THE SHIFT. AROUND 2200 PT [address]ECAME CON[address] TO [address] AND SITUATION. PT WAS PULLING OFF THE MONITOR AND DID NOT KNOW WHERE SHE WAS. PT WASN'T VERY EASILY REORIENT TO PLACE, TIME AND SITUATION. PT STATED THAT SHE WANTED SOMETHING TO GO TO SLEEP, AMBIEN WAS GIVEN WITH GOOD RESULTS. VSS, AFEBRILE. AFIB PER MONITOR. DENIE PAIN, SOB AND N/V. SLOW PROGRESS TOWARDS DC GOALS, WILL CONTINUE TO MONITOR.
[2018-10-28 06:19] LABS: HEMATOCRIT 27.1 % (37.0-47.0); HEMOGLOBIN 8.4 gm/dL (12.0-15.0); MCH 24.2 pg (26.0-34.0); RBC 3.48 mil/uL (4.20-5.00); RDW 23.1 % (10.5-14.5); WBC 19.2 thou/uL (4.0-11.0)
[2018-10-28 06:32] LABS: CREATININE 0.9 mg/dL (0.6-1.0)
[2018-10-28 08:05] VITALS: BP 145/100
[2018-10-28 12:05] VITALS: BP 145/60
[2018-10-28 16:00] VITALS: BP 122/66
--- NOTE | 2018-10-28 19:34 | NUR ---
ASSUMED PATIENT CARE THIS AM. PATIENT LYING IN BED, A&O TO PERSON, PLACE, SITUATION. NO COMPLAINTS OF PAIN. PATIENT INCONTINENT, EXTERNAL FEMALE CATHETER IN PLACE, PATIENT ABLE TO REPOSITION SELF IN BED. LOW FALL RISK. BED ALARM IN PLACE. PATIENT TOLERATING DIET WITH TRAY SET UP. ROOM AIR. POSSIBLE DISCHARGE TO FACILITY TOMORROW.
[2018-10-28 20:18] VITALS: BP 127/55
--- NOTE | 2018-10-29 03:41 | NUR ---
ASSESSMENT DOCUMENTED.PT RESTING IN NAD.A/OX2-3 WITH SOME CONFUSION.VSS.ON MONITOR REMAINS AFIB WITH HR IN 90S-110S.ON RA W/O RESP DISTRESS.SATS ADEQUATE.PT DENIES PAIN.INCONTINENT OF BLADDER,PERICARE GIVEN.POC IS TO DISCHARGE BACK TO SNF.WILL CONT TO MONITOR PER POC.
[2018-10-29 04:00] VITALS: BP 152/69
[2018-10-29 05:55] LABS: ABSOLUTE NEUTROPHILS 17.8 thou/uL (1.4-8.2); BASOPHILS 0.1 % (0.0-2.0); EOSINOPHILS 0.1 % (0.0-3.0); HEMATOCRIT 27.4 % (37.0-47.0); HEMOGLOBIN 8.5 gm/dL (12.0-15.0); LYMPHOCYTES 3.2 % (24.0-44.0); MCH 24.3 pg (26.0-34.0); MCHC 31.1 g/dL (28.0-37.0); MCV 77.9 fL (80.0-100.0); MONOCYTES 5.6 % (1.0-8.0); PLATELET COUNT 458 thou/uL (150-400); RBC 3.51 mil/uL (4.20-5.00); RDW 22.5 % (10.5-14.5); WBC 19.6 thou/uL (4.0-11.0)
[2018-10-29 06:33] LABS: ANISOCYTOSIS 3+
[2018-10-29 06:35] LABS: OVALOCYTES 1+; PLATELET ESTIMATE NORMAL; POLYCHROMASIA 1+
[2018-10-29 08:53] VITALS: BP 124/50
[2018-10-29 12:00] VITALS: BP 135/52
[2018-10-29 16:00] VITALS: BP 116/59
--- NOTE | 2018-10-29 18:34 | NUR ---
ASSUMED CARE OF PT AT SHIFT CHANGE. ASSESSMENTS CHARTED. MEDS GIVEN PER OCT. PT ALERT AND ORIENTED TO SELF, CONFUSED. NO C/O PAIN, DENIES CHEST PAIN. O2 SATS WNL ON ROOM AIR, NO S/SX OF CARDIAC OR RESP DISTRESS NOTED. PT DOES NOT CALL APPROPRIATELY WITH NEEDS, CLOSE TO NURSE STATION. URINE OUTPUT ADEQUATE, EXTERNAL CATH IN PLACE. PT REFUSED TURNS, AND PHYSICAL THERAPY, EDUCATION GIVEN ON IMPORTANCE. DENIES CONCERNS AT THIS TIME. WILL CONTINUE TO MONITOR AND FOLLOW POC.
[2018-10-29 20:44] VITALS: BP 132/74
--- NOTE | 2018-10-30 03:23 | NUR ---
ASSESSMENT DOCUMENTED.PT RESTING IN NO ACUTE DISTRESS.A/O X2-3 WITH CONFUSION.VSS.AFEBRILE.AFIB ON MONITOR.POSITION SELF IN BED.PT DENIES NEEDS.ABT INFUSED PER ORDERS.ANTICIPATING DISCHARGE TO [facility] TODAY OR TOMORROW.WILL CON TO MONITOR.
[2018-10-30 04:04] VITALS: BP 125/59
[2018-10-30 04:34] LABS: HEMATOCRIT 28.9 % (37.0-47.0); HEMOGLOBIN 9.1 gm/dL (12.0-15.0); MCH 24.5 pg (26.0-34.0); MCHC 31.6 g/dL (28.0-37.0); MCV 77.6 fL (80.0-100.0); RBC 3.72 mil/uL (4.20-5.00); RDW 21.7 % (10.5-14.5); WBC 22.3 thou/uL (4.0-11.0)
[2018-10-30 04:47] LABS: CREATININE 0.9 mg/dL (0.6-1.0); POTASSIUM 4.7 mmol/L (3.5-5.1)
[2018-10-30 08:23] VITALS: BP 154/80
[2018-10-30 12:00] VITALS: BP 130/62
--- NOTE | 2018-10-30 14:29 | NUR ---
FAXED CLINICAL UPDATE TO [facility] SPOKE WITH MARLENA IN ADM SHE RECEIVED UPDATE. DCP TO FOLLOW.
[2018-10-30 16:00] VITALS: BP 122/70
[2018-10-30 19:25] VITALS: BP 123/73
--- NOTE | 2018-10-30 20:53 | NUR ---
ASSUMED CARE OF PT AT APPROX 0700. PT IS ALERT AND ORIENTED TO SELF ONLY. DENIES PAIN AND SOA. EVEN NON LABORED BREATHING. PT VERY DROWSY IN AM, HARD TO ARROUSE AND STAY AWAKE FOR MORE THAN ENOUGH TIME TO EVEN TAKE MEDICATIONS. HELD MORNING MEDICATIONS. AT AROUND LUNCH TIME APPROX PT WAS EASILY AROUSED, PT UP UN BEDSIDE CHAIR, POOR APPETITE, SLEEPING IN KAYLA BT VERY EASY TO ARROUSE AND EASILY FOLLOWS COMMANDS. PT NOT MAKING GOOD PROGRESS TOWARDS POC GOALS OF DC AT THIS TIME. PT REMAINS ON IV ANTIBIOTICS CURRENTLY. WILL CONTINUE TO MONITOR.
--- NOTE | 2018-10-31 03:41 | NUR ---
ASSUMED PT CARE AT 1900. PT ORIENTED ONLY TO SELF, VITAL SIGNS STABLE, ASSESSMENT CHARTED. NO COMPLAINTS OF PAIN OR CHEST PAIN. PT HR IN THE 120'S TO 140'S AND SUSTAINING. DAY NURSE MENTIONED THAT SCHEDULED DILTIAZEM WAS NOT GIVEN DURING THE DAY. SPOKE TO DOCTOR, LOPRESSOR AND DILTIAZEM GIVEN. HR MORE CONTROLLED AFTER MEDICATION WAS GIVEN. PT RESTED WELL THROUGH THE NIGHT. PT ABLE TO TURN SELF IN BED. EXTERNAL CATHETER IN PLACE. PT CLOSE TO NURSING STATION. BED ALARM ON. WILL CONTINUE TO MONITOR.
[2018-10-31 04:39] VITALS: BP 133/54
[2018-10-31 05:16] LABS: HEMOGLOBIN 9.3 gm/dL (12.0-15.0); MCH 24.2 pg (26.0-34.0); MCV 78.3 fL (80.0-100.0); RBC 3.83 mil/uL (4.20-5.00); WBC 21.3 thou/uL (4.0-11.0)
[2018-10-31 05:27] LABS: CALCIUM 7.9 mg/dL (8.5-10.1); CREATININE 0.8 mg/dL (0.6-1.0); POTASSIUM 4.5 mmol/L (3.5-5.1)
[2018-10-31 07:39] VITALS: BP 115/63
[2018-10-31 11:34] VITALS: BP 133/70
[2018-10-31 11:51] VITALS: BP 144/69
--- NOTE | 2018-10-31 12:57 | NUR ---
Spoke with patient and jessica Briggs, who lives out of area. Updated cont plan to return to [facility] once medically stable. DC urban and regional planner updating [facility] center. Pulm consulted.
[2018-10-31 15:46] VITALS: BP 112/57
--- NOTE | 2018-10-31 18:41 | NUR ---
ASSUMED PATIENT CARE THIS AM. PATIENT SLEEPING MOST OF SHIFT, ALERT AND ORIENTED TO PERSON AND PLACE. PATIENT STATES NO APPETITE. PATIENT DRINKING WATER THROUGHOUT SHIFT, SMALL BITES OF FOOD. PATIENT INCONTINENT, EXTERNAL CATHETER IN PLACE.
[2018-10-31 19:31] VITALS: BP 104/49
--- NOTE | 2018-11-01 03:05 | NUR ---
ASSUMED PT CARE AT 1900. PT ORIENTED TO SELF, VITAL SIGNS STABLE, ASSESSMENT CHARTED. NO COMPLAINTS OF PAIN. PT ABLE TO TURN SELF IN BED. FALL PRECAUTIONS IN PLACE. PT CLOSE TO NURSING STATION. PT TOLERATED SNACK BEFORE BED. RESTED WELL THROUGH THE NIGHT. PROGRESSING SLOWLY TOWARD PLAN OF CARE. WILL CONTINUE TO MONITOR.
[2018-11-01 05:35] VITALS: BP 117/45
[2018-11-01 06:02] LABS: ALBUMIN 2.1 g/dL (3.4-5.0); CALCIUM 7.9 mg/dL (8.5-10.1); POTASSIUM 4.4 mmol/L (3.5-5.1); TOTAL BILIRUBIN 0.3 mg/dL (<0.1-1.0); TOTAL PROTEIN 5.2 g/dL (6.4-8.2)
[2018-11-01 08:05] LABS: PROTIME 10.9 Seconds (9.3-11.4)
[2018-11-01 08:11] VITALS: BP 109/53
[2018-11-01 08:16] LABS: HEMOGLOBIN 8.8 gm/dL (12.0-15.0); MCH 24.3 pg (26.0-34.0); MCHC 31.4 g/dL (28.0-37.0); MCV 77.5 fL (80.0-100.0); PLATELET COUNT 428 thou/uL (150-400); RBC 3.62 mil/uL (4.20-5.00); RDW 21.8 % (10.5-14.5); WBC 24.9 thou/uL (4.0-11.0)
[2018-11-01 08:37] LABS: ABSOLUTE NEUTROPHILS 22.9 thou/uL (1.4-8.2)
[2018-11-01 08:38] LABS: ANISOCYTOSIS 2+; OVALOCYTES FEW
[2018-11-01 12:16] LABS: SOURCE CHEST; TOTAL VOLUME 60 mL
[2018-11-01 12:17] LABS: CLARITY CLEAR; COLOR YELLOW
[2018-11-01 12:27] VITALS: BP 133/42
[2018-11-01 13:31] LABS: BF NUCLEATED CELLS 121; BF RBC 186
[2018-11-01 13:42] LABS: BF MACROPHAGE 21; BF NEUTROPHILS 52
--- NOTE | 2018-11-01 14:16 | NUR ---
Pt was tapped this am. Improving today with possible dc 1- 2days. Updated Celina in admissions at [facility]. Dc exercise planner to fax todays physician progress notes.
--- NOTE | 2018-11-01 16:57 | NUR ---
FAXED CLINICAL UPDATE TO [facility] LEFT MSG WITH MARLENA IN ADM. THAT PT/OT NOTES AND TODAY'S PROG. NOTES FAXED. DCP TO FOLLOW.
[2018-11-01 17:19] VITALS: BP 125/49
--- NOTE | 2018-11-01 18:24 | NUR ---
ASSUMED CARE OF PATIENT AT 0700. ASSESSMENTS CHARTED. PATIENT IS ALERT TO SELF AND AWARE THAT SHE IS IN THE HOSPITAL BUT UNAWARE OF THE SPECIFIC NAME. PATIENT UNDERWENT A THORACENTESIS TODAY AND TOLERATED THE PROCEDURE WELL. SHE HAD TWO BOUTS OF NAUSEA WHICH WAS TREATED WITH ZOFRAN. IN THE LATE AFTERNOON THE PATIENT'S HEARTRATE WAS SUSTAINED AT GREATER THAN 120 FOR OVER AN HOUR AND THEN JONG INTO THE 140-150'S. IV ORDER FOR LOPRESSORE WAS GIVEN BY Gildardo BRUNO NP, PATIENT'S HEART RATE QUICKLY RESUMED TO HER NORMAL WHICH IS IN THE LOW 100'S. PATIENT IS RESTING COMFORTABLY IN BED WITH THE CALL LIGHT WITHIN REACH. PATIENT TO CONTINUE WITH POC.
[2018-11-01 20:45] VITALS: BP 95/66
[2018-11-02 05:00] LABS: HEMATOCRIT 25.3 % (37.0-47.0); HEMOGLOBIN 7.9 gm/dL (12.0-15.0); MCH 24.3 pg (26.0-34.0); MCHC 31.2 g/dL (28.0-37.0); RBC 3.24 mil/uL (4.20-5.00); RDW 21.5 % (10.5-14.5); WBC 25.6 thou/uL (4.0-11.0)
[2018-11-02 05:03] LABS: CALCIUM 7.7 mg/dL (8.5-10.1); CREATININE 1.2 mg/dL (0.6-1.0); MAGNESIUM 2.3 mg/dL (1.8-2.4); POTASSIUM 4.3 mmol/L (3.5-5.1)
--- NOTE | 2018-11-02 05:06 | NUR ---
PT AO X 1. INCONTINENT. HGB DROPPED FOM 8.8 TO 7.9. PT. SUSTAINING HR >120, LOPRESSOR IV GIVEN. DENIES PAIN, CHEST PAIN, SOB. CONTINUE WITH ABX. NO OTHER SIGN OF DISTRESS. WILL CONTINUE TO FOLLOW PLAN OF CARE.
[2018-11-02 05:58] VITALS: BP 114/61
[2018-11-02 07:25] VITALS: BP 98/53
[2018-11-02 09:12] LABS: BODY FLUID ALBUMIN 0.8 g/dL (()); BODY FLUID AMYLASE 8 U/L (()); BODY FLUID GLUCOSE 142 mg/dL (()); BODY FLUID LDH 80 IU/L (())
--- NOTE | 2018-11-02 14:48 | NUR ---
NOTIFIED MARLENA IN ADM. AT [facility] THAT PT. WILL NOT DISCHARGE OVER WEEKEND. DCP UPDATED FACILITY 11/01. DCP TO FOLLOW.
[2018-11-02 20:15] VITALS: BP 92/58
[2018-11-03] VITALS (8 sets, daily range): BP systolic 102–125; BP diastolic 50–87
--- NOTE | 2018-11-03 05:03 | NUR ---
ASSUMED CARE AT 1900. PT AO X4. STILL ON ABX. INCONTINENT. AFIB HR CONTROLLED. DENIES PAIN, SOB/N/V/D. VITALS STABLE. WILL CONTINUE TO FOLLOW POC
[2018-11-03 05:55] LABS: HEMATOCRIT 26.4 % (37.0-47.0); HEMOGLOBIN 8.2 gm/dL (12.0-15.0); MCH 24.3 pg (26.0-34.0); MCHC 31.2 g/dL (28.0-37.0); RBC 3.39 mil/uL (4.20-5.00)
[2018-11-03 06:12] LABS: CALCIUM 8.3 mg/dL (8.5-10.1); MAGNESIUM 2.5 mg/dL (1.8-2.4); POTASSIUM 4.4 mmol/L (3.5-5.1)
[2018-11-03 08:21] LABS: SOURCE CHEST
[2018-11-03 18:43] LABS: URINE BILIRUBIN NEGATIVE (Negative); URINE BLOOD TRACE (Negative); URINE CLARITY CLEAR; URINE COLOR YELLOW; URINE GLUCOSE-RANDOM* NEGATIVE (Negative); URINE KETONES NEGATIVE (Negative); URINE LEUKOCYTES-REFLEX 1+ (Negative); URINE NITRITE-REFLEX NEGATIVE (Negative); URINE PROTEIN (DIPSTICK) NEGATIVE (Negative); URINE UROBILINOGEN 0.2 E.U./dl (0.2-1.0)
[2018-11-03 18:46] LABS: BACTERIA-REFLEX 1-9 Few /HPF (None Seen); CASTS None Seen /LPF (None Seen); SQUAMOUS 0-3 Few /LPF (0-3); URINE RBC 0-2 Rare /HPF (0-2); URINE WBC-REFLEX 0-5 Rare /HPF (0-5)
[2018-11-03 18:47] LABS: CRYSTALS None Seen /LPF (None Seen); YEAST-REFLEX Present (None Seen)
--- NOTE | 2018-11-03 19:38 | NUR ---
ASSUMED PATIENT CARE THIS AM. PATIENT LYING IN BED, A&O TO SELF. NC 1L AT THIS TIME, RESPIRATORY CARE MANAGING PATIENT WELL. LOW FALL RISK. BED/CHAIR ALARM IN PLACE. CALL LIGHT WITHIN REACH, PATIENT CLOSE TO NURSES STATION FOR MONITORING. PATIENT REFUSED ORAL MEDICATION FOR THIS RN, PROVIDER NOTIFIED OF ELEVATED HEART RATE DUE TO NOT TAKING ORAL MEDICATION. ORDER FOR CARDIZEM DRIP GIVEN AND STARTED, MONITORING BLOOD PRESSURE AND HEART RATE. PATIENT AWAKE AND WANTED TO EAT/DRINK DINNER. PATIENT TOLERATED 1/5TH OF DINNER TRAY. PATIENT ENCOURAGED TO DRINK FLUID, WATER AND JUICE GIVEN TO PATIENT. TOLERATING WELL. PATIENT INCONTINENT, EXTERNAL FEMALE CATHETER IN PLACE.
[2018-11-04 04:30] VITALS: BP 118/59
--- NOTE | 2018-11-04 04:51 | NUR ---
1900, PT AO X 1. DENIES PAIN BUR REPORTS MILD ABDOMINAL DISCOMFORT. PT ABDOMEN LOOKS DISTENDED.BOWEL SOUNDS ACTIVE. KUB YESTERDAY SHOWED NO IMPACTION. PT ALSO WAS STARTED ON CARDIZEM YESTERDAY. HR MAINTAINED IN THE LOWER 100S WITH SOFT BP. CARDIZEM MAINTAINED AT 10ML/HR.
[2018-11-04 05:37] LABS: HEMOGLOBIN 8.7 gm/dL (12.0-15.0); MCH 24.3 pg (26.0-34.0); MCHC 31.1 g/dL (28.0-37.0); MCV 77.9 fL (80.0-100.0); RBC 3.6 mil/uL (4.20-5.00); RDW 22.4 % (10.5-14.5); WBC 25.9 thou/uL (4.0-11.0)
[2018-11-04 05:48] LABS: CALCIUM 8.1 mg/dL (8.5-10.1); MAGNESIUM 2.3 mg/dL (1.8-2.4); POTASSIUM 4.3 mmol/L (3.5-5.1)
--- NOTE | 2018-11-04 08:25 | NUR ---
PT WAS C/O ABDOMINAL DISCOMFORT. DISTENDED RIGHT LOWER ABDOMEN. JOSHUA VICENTE NOTIFIED. COLACE, AND SUPPOSITORY ORDERED. PT HAD NOT HAD A BM SINCE 10/28/18. BLADDER SCAN REVEALED URINE RETENTION OF 999. STRAIGHT CATH 1100 CC OFF. JOSHUA VICENTE NOTIFIED. ORDERS OF ANOTHER UA, AND INDWELLING CATHETER GIVEN. ORDERS COMMUNICATED TO DAY SHIFT FOR FOLLOW IMPLEMENTATION IT WAS CHANGE OF SHIFT.
[2018-11-04 08:54] VITALS: BP 110/79
[2018-11-04 12:02] LABS: URINE BILIRUBIN NEGATIVE (Negative); URINE BLOOD 3+ (Negative); URINE CLARITY CLOUDY; URINE COLOR YELLOW; URINE GLUCOSE-RANDOM* NEGATIVE (Negative); URINE KETONES NEGATIVE (Negative); URINE LEUKOCYTES 2+ (Negative); URINE NITRITE NEGATIVE (Negative); URINE PROTEIN (DIPSTICK) NEGATIVE (Negative); URINE SPECIFIC GRAVITY 1.015 (1.005-1.035); URINE UROBILINOGEN 0.2 E.U./dl (0.2-1.0)
[2018-11-04 12:08] LABS: BACTERIA 1-9 Few /HPF (None Seen); CASTS None Seen /LPF (None Seen); CRYSTALS None Seen /LPF (None Seen); SQUAMOUS 0-3 Few /LPF (0-3); YEAST Present (None Seen)
[2018-11-04 12:21] VITALS: BP 100/51
[2018-11-04 16:00] VITALS: BP 97/50
[2018-11-04 17:33] VITALS: BP 92/46
--- NOTE | 2018-11-04 19:44 | NUR ---
ASSUMED CARE OF PT AT SHIFT CHANGE. ASSESSMENTS CHARTED. MEDS GIVEN PER OCT. PT ALERT TO SELF, CONFUSED, REORIENTED FREQUENTLY. ASSISTED PT WITH MEALS, PT DOES NOT FINISH MEALS, BUT STILL ATTEMPTS. PT HAD BM THIS SHIFT, UP TO COMMODE X2 ASSIST. CARDIZEM DRIP ON HOLD PER ORDERS DUE TO SYSTOLIC BP <100, NIGHT NURSE AWARE. PEREZ CATH PUT IN THIS SHIFT, ADEQAUTE URINE OUTPUT. PT HAS REDNESS AND ITCHING IN LENORE AREA, ORDERS FOR NYSTATIN ACKNOWLEDGED AND IMPLEMENTED. PLAN FOR PT IS DC TO [facility]. WILL CONTINUE TO MONITOR AND FOLLOW POC.
[2018-11-04 19:51] VITALS: BP 105/51
[2018-11-05 04:18] VITALS: BP 109/52
--- NOTE | 2018-11-05 05:38 | NUR ---
ASSUMED PT CARE AT 1900 WITH BEDSIDE REPORT COMPLETED. NO SIGN OF DISTRESS NOTED IN PT. PT IS SLEEPING IN BED. DENIES ANY NEEDS AT THIS TIME. SCHEDULED MEDS ADMINISTERED TO PT. DENIES ANY NEEDS AT THIS TIME. PT IS READY FOR POSSIBLE DISCHARGE.
[2018-11-05 06:54] LABS: HEMATOCRIT 26.2 % (37.0-47.0); HEMOGLOBIN 8.1 gm/dL (12.0-15.0); MCH 24.4 pg (26.0-34.0); MCHC 31.1 g/dL (28.0-37.0); MCV 78.6 fL (80.0-100.0); RBC 3.34 mil/uL (4.20-5.00); WBC 21.8 thou/uL (4.0-11.0)
[2018-11-05 07:08] LABS: CALCIUM 8.1 mg/dL (8.5-10.1); CREATININE 0.9 mg/dL (0.6-1.0); MAGNESIUM 1.9 mg/dL (1.8-2.4); POTASSIUM 3.5 mmol/L (3.5-5.1)
[2018-11-05 09:15] VITALS: BP 99/52
--- NOTE | 2018-11-05 12:09 | NUR ---
FAXED CLINICAL UPDATE TO [facility] SPOKE WITH MARLENA IN ADM. SHE RECEIVED UPDATE. DCP TO FOLLOW.
[2018-11-05 12:19] VITALS: BP 96/68
--- NOTE | 2018-11-05 13:43 | NUR ---
ASSUMED PATIENT CARE THIS AM. PATIENT LYING IN BED, ALERT TO PERSON. PATIENT SLEEPING MOST OF SHIFT FOR THIS RN. ENCOURAGED TO EAT AND DRINK, PATIENT ABLE TO TAKE MEDICATION THIS AM WITH LOTS OF ENCOURAGEMENT. PEREZ CATHETER PATENT AND SECURE. PATIENT ABLE TO REPOSITION HERSELF IN BED. LOW APPETITE, PROVIDER AWARE.
[2018-11-05 16:11] VITALS: BP 94/52
[2018-11-05 19:55] VITALS: BP 90/48
[2018-11-05 23:34] VITALS: BP 93/49
[2018-11-06 04:40] VITALS: BP 124/65
--- NOTE | 2018-11-06 05:57 | NUR ---
ASSUMED PT CARE AT 1900 WITH NO SIGN OF DISTRESS NOTED IN PT. PT IT STABLE, ALERT, BUT CONFUSED. PT IS LAYING IN BED. VITAL SIGNS ARE STABLE. SCHEDULED MEDS ADMINISTERED TO PT, PT TOLERATED PO INTAKE. DENIES ANY FURTHER NEEDS AT THIS TIME.
[2018-11-06 07:07] VITALS: BP 107/61
[2018-11-06 08:28] LABS: HEMATOCRIT 25.1 % (37.0-47.0); HEMOGLOBIN 7.9 gm/dL (12.0-15.0); MCHC 31.6 g/dL (28.0-37.0); RBC 3.17 mil/uL (4.20-5.00); RDW 21.2 % (10.5-14.5)
[2018-11-06 08:30] LABS: WBC 23.6 thou/uL (4.0-11.0)
[2018-11-06 08:36] LABS: CALCIUM 7.8 mg/dL (8.5-10.1); CREATININE 0.9 mg/dL (0.6-1.0); MAGNESIUM 1.7 mg/dL (1.8-2.4); POTASSIUM 3.4 mmol/L (3.5-5.1)
--- NOTE | 2018-11-06 09:35 | NUR ---
Followup: Wts fluctuating with diuresis. PO intake decreased/anorexia. Confused and unable to relay food preferences. CT showing constipation-has been started on miralax and lactulose. Continue modified diet and magic cups. Change nutrition status to low risk with appropriate nutrition interventions in place.
[2018-11-06 11:53] VITALS: BP 92/45
--- NOTE | 2018-11-06 13:19 | NUR ---
pallative care consult. Updated [facility]. spoke with Zahra at [facility] who reports no DPOA paperwork but jessica Vidal is contact.
[2018-11-06 16:20] VITALS: BP 97/50
--- NOTE | 2018-11-06 19:46 | NUR ---
ASSUMED PATIENT CARE THIS AM. PATIENT LYING IN BED, ALERT TO PERSON AND PLACE AT TIMES. COOPERATIVE. LOW APPETITE. EATING PUDDING, APPLESAUCE AND MAGIC CUPS. TOLERATING NECTAR WATER. PATIENT INCONTINENT, THREE BOWEL MOVEMENTS FOR THIS RN. PEREZ CATHETER PATENT AND SECURE, PEREZ CARE GIVEN MULTIPLE TIMES.
[2018-11-06 19:54] VITALS: BP 102/43
[2018-11-07 04:09] VITALS: BP 112/43
[2018-11-07 04:18] LABS: CALCIUM 7.5 mg/dL (8.5-10.1); CREATININE 0.8 mg/dL (0.6-1.0); MAGNESIUM 2.1 mg/dL (1.8-2.4); POTASSIUM 3.6 mmol/L (3.5-5.1)
[2018-11-07 04:28] LABS: HEMOGLOBIN 8.5 gm/dL (12.0-15.0); MCH 25.5 pg (26.0-34.0); MCHC 31.6 g/dL (28.0-37.0); MCV 80.8 fL (80.0-100.0); RBC 3.35 mil/uL (4.20-5.00); RDW 21.6 % (10.5-14.5); WBC 18.6 thou/uL (4.0-11.0)
--- NOTE | 2018-11-07 05:43 | NUR ---
PATIENTS CARES WERE ASSUMED AT SHIFT CHANGE. PATIEMT WAS ASSESSED AND MEDS WERE PASSED. HOURLY ROUNDING WAS DONE PATIENT DID APPER TO SLEEP HOWEVER SHE DID NOT WANT HER LIGHTS OUT. THE BED IS IN A LOW AND LOCKED POSSITION.
[2018-11-07 08:35] VITALS: BP 108/44
--- NOTE | 2018-11-07 10:08 | PATH ---
[facility] [address] [address] PATHOLOGY RPT PROCEDURE Name: SHERMAN TREJO Room #: 216-P ADM IN M.R.#: [id number] ������������������ Admission: 10/21/18 ������������������ Date of : 32 Discharge: Report #: [id number] Path Case #: [id number] Note [facility] Accession Number: [id number] TESTS RESULT FLAG UNITS REF RANGE LAB Clinician Provided Cytology Information No. of containers..01 Other (Miscellaneous) Source: 01 PLERUAL FLUID DIAGNOSIS: 02 PLERUAL FLUID NEGATIVE FOR MALIGNANT CELLS. 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 THIS INTERPRETATION INCLUDES EVALUATION OF A CELL BLOCK. Pathologist ICD10: 02 J18.9 Signed out by: Elisa Mcconnell MD, Pathologist NPI- [id number] Performed by: Lisa Raya, Shipping And Receiving Associate ([facility]) Gross description: 01 15ML, YELLOW, CLEAR /LCS FLAG LEGEND: L-Low Normal,H-High Normal,LL-Alert Low,HH-Alert High <-Panic Low,>-Panic High,A-Abnormal,AA-Critical Abnormal Performed at: [address] [place] [address] Andrey Noyola MD, [address] [address] Elisa Mcconnell MD, Specimen Comment: A courtesy copy of this report has been sent to Specimen Comment: [phone], . Specimen Comment: Report sent to and Specimen Comment: A duplicate report has been generated due to demographic updates. Performed at: [address], [place], [place] [id number] MD Andrey Noyola MD Phone: [phone]
[2018-11-07 11:58] VITALS: BP 88/42
--- NOTE | 2018-11-07 15:44 | NUR ---
PT ALERT AND ORIENTED TIMES ONE TO SELF ONLY. PT VERY AGITATED ON AND OFF TODAY. VERY POOR APPETITE. PT WORKED FAIR WITH PHYSICAL THERAPY, UP WITH ONE ASSIST. PT TOLERATES MEDS. ANA TO [facility]. POSSIBLE PLANS TO DISCHARGE TO SNF TODAY. WILL CONTINUE TO MONITOR.
[2018-11-07] MEDS ORDERED: TORSEMIDE10 MG PO (15:49)
[2018-11-07] MEDS ORDERED: AUGMENTIN 500-1 EACH PO (15:49)
[2018-11-07] MEDS ORDERED: MIRALAX17 GM PO (15:50)
[2018-11-07] MEDS ORDERED: COLACE100 MG PO (15:51)
[2018-11-07] MEDS ORDERED: CARDIZEM CD240 MG PO (15:51)
[2018-11-07 16:00] VITALS: BP 102/66
--- NOTE | 2018-11-07 16:25 | NUR ---
Sp with nimartita Briggs who is agreeable to hospice services at [facility]. She has no prefernce for hospice agency. She reports concern with unit patient is on at [facility]. She has called and it is loud and rn doesnt return call. reached out to [facility] Linda who will sp with jessica regarding room change. She has called and left message. Niece with no preference for Hospice agency. Sp with Zahra in admissions at [facility] who reports they work with [employer], [facility] and [employer] agencies. Sp with Mirian who needs consent from dylanmarttia they left message but have not connected. CM also left message for nimartita. Outside DNR original in chart copy. Plan dc in am once hospice finalized.
[2018-11-07 19:29] VITALS: BP 97/52
[2018-11-08 03:07] LABS: CALCIUM 7.6 mg/dL (8.5-10.1); CREATININE 0.8 mg/dL (0.6-1.0); POTASSIUM 3.9 mmol/L (3.5-5.1)
--- NOTE | 2018-11-08 03:23 | NUR ---
ASSUMED PT CARE AT 1900. PT ORIENTED ONLY TO SELF. VITAL SIGNS STABLE, ASSESSMENT CHARTED. NO COMPLAINTS OF PAIN. PT ON 1L OF O2, NO SOA. PT CLOSE TO NURSING STATION FOR CLOSE MONITORING. PROGRESSING SLOWLY TOWARD PLAN OF CARE. WILL CONTINUE TO MONITOR.
[2018-11-08 04:43] LABS: HEMOGLOBIN 9.1 gm/dL (12.0-15.0); MCH 25.5 pg (26.0-34.0); MCHC 31.3 g/dL (28.0-37.0); MCV 81.4 fL (80.0-100.0); RBC 3.56 mil/uL (4.20-5.00); RDW 21.3 % (10.5-14.5); WBC 15.9 thou/uL (4.0-11.0)
[2018-11-08 04:49] VITALS: BP 117/63
[2018-11-08 09:15] VITALS: BP 111/50
[2018-11-08 13:04] VITALS: BP 95/61
--- NOTE | 2018-11-08 13:04 | NUR ---
ASSUMED CARE 0930. ALERT TO SELF, DROWSY. NOT INTERESTED IN MEALS. DENIES PAIN. AFIB IN THE 117'S. NO BM AT THIS TIME. PEREZ ROMOVED AND PICC LINE REMOVED. PT TO DC BACK TO FACILITY WITH HOSPICE TO FOLLOW. LEFT MESSAGE WITH FACILITY TO CALL FOR REPORT-MADE SEVERAL ATTEMPTS TO REACH RN AT FACILITY FOR REPORT. WILL LEAVE VIA STRETCH AT APPROX. 1430. CALL LIGHT IN REACH. FALL PRECAUTIONS IN PLACE
--- NOTE | 2018-11-08 13:29 | NUR ---
PT. DISCHARGING TODAY TO [facility] WITH [facility]. FAXED DC ORDERS/SUMMARY TO FACILITY SPOKE WITH MARLENA ORDERS RECEIVED AND NOTIFIED HER THAT TRANSPORT ARRANGED VIA AMB. ([facility]) FOR 1430 TODAY. NOTIFIED PT'S NIECE (ESTRELLA) OF DISCHARGE AND TRANSPORT TIME. UNIT NOTIFIED AND CHART COPY PER US. RN TO CALL REPORT TO [phone].
--- NOTE | 2018-11-08 14:17 | NUR ---
Pt dcing back to [facility] with hosp[facility] services this afternoon. [facility] confirmed that they have made contact with the pt's niece Brigitte this morning in regardings to her admission to services today. All parties are agreeable. COURTNEY lora has faxed orders to both the [facility] and the hospice agency. Nursing to call report. Courtney lora has confirmed ambulance transport time 2:30-3pm with all parties including her niece.
== END 2018-11-08 14:50 | DRG 871 ==
LOC: ER 10:50 → EROBS 12:44 → ICU 12:44 → 2N 12:44 → ICU 13:35 → 2N 10-23 23:08
PROVIDERS: Hospitalist; Internal Medicine; Internal Medicine Infectious Disease; Nurse Practitioner Acute Care; Nurse Practitioner Family; Pediatrics; Specialist; Student in an Organized Health Care Education/Training Program; ADMIT Internal Medicine
DX: A41.89 Other specified sepsis (principal); I21.4 Non-ST elevation (NSTEMI) myocardial infarction; J18.1 Lobar pneumonia, unspecified organism; J96.20 Acute and chronic respiratory failure, unspecified whether with hypoxia or hypercapnia; I50.43 Acute on chronic combined systolic (congestive) and diastolic (congestive) heart failure; E46 Unspecified protein-calorie malnutrition; N17.9 Acute kidney failure, unspecified; I42.9 Cardiomyopathy, unspecified; J90 Pleural effusion, not elsewhere classified; D62 Acute posthemorrhagic anemia; Z68.1 Body mass index [BMI] 19.9 or less, adult; J44.0 Chronic obstructive pulmonary disease with (acute) lower respiratory infection; I13.0 Hypertensive heart and chronic kidney disease with heart failure and stage 1 through stage 4 chronic kidney disease, or unspecified chronic kidney disease; I48.91 Unspecified atrial fibrillation; F03.90 Unspecified dementia, unspecified severity, without behavioral disturbance, psychotic disturbance, mood disturbance, and anxiety; E78.5 Hyperlipidemia, unspecified; K21.9 Gastro-esophageal reflux disease without esophagitis; R13.10 Dysphagia, unspecified; N18.9 Chronic kidney disease, unspecified; D50.9 Iron deficiency anemia, unspecified; R33.9 Retention of urine, unspecified; K59.00 Constipation, unspecified; E83.42 Hypomagnesemia; T50.2X5A Adverse effect of carbonic-anhydrase inhibitors, benzothiadiazides and other diuretics, initial encounter; B37.2 Candidiasis of skin and nail; Z88.8 Allergy status to other drugs, medicaments and biological substances; Z79.82 Long term (current) use of aspirin; Z79.899 Other long term (current) drug therapy; Z85.038 Personal history of other malignant neoplasm of large intestine
CPT/HCPCS: 10078; 10081; 10203; 27000